=== PATIENT | female | born 1945 | race Caucasian/White ===

== ENCOUNTER → 2016-11-14 | Outpatient (CLI) | payer MEDICARE, OTHER ==
[~2016-11-14] MED LIST: ALDACTONE 25MG25 M1 PO; ALDOMET 250MG250 MG PO; AMLOPIDINE PO; ASPIR-LOW81 MG PO; ASPIRIN E.C. 8181 MG PO; B-121000 MCG PO; BUMEX 1MG TA1 MG/TA1 PO; BUMEX PO; BUMEX1 MG PO; BYDUREON PEN2 MG SQ; BYSTOLIC20 MG PO; CALCITRATE 3151 TAB PO; CALCIUM + D 5001 TAB PO; CALTRATE 600 +1 TAB PO; CATAPRES-TTS 10.1 M1 TD; CLONIDINE0.1 MG/24 TD; COZAAR100 MG PO; COZAAR50 MG PO; DOMPERIDONE10 MG/CAP PO; FORTAMET1000 MG PO; FORTAMET500 M1 PO; FOSAMAX PO; JOINT JUICE; LANTUS100 U/ML SQ; LIVALO2 MG PO; METOPROLOL PO; METOPROLOL TART50 MG PO; MICARDIS80 MG PO; NEXIUM40 MG PO; NIASPAN 500MG500 MG PO; NIASPAN500 MG PO; NORVASC 5MG5 MG/TAB PO; NOVLOG SQ; NOVOLOG; NOVOLOG 100U100 U/ML SQ; NOVOLOG FLEX100 U/ML SQ; OMEGA 31000 MG PO; PREDNISONE20 MG PO; PREMARIN V0.625 MG/G VG; REGLAN 10MG10 MG/TAB PO; SYNTHROID PO; SYNTHROID0.05 MG/TA PO; TEKTURNA PO; TIROSINT50 MC1 PO; TIROSINT50 MCG PO; TOPROL XL100 MG PO; TRICOR48 MG PO; VASCEPA1 GM PO; VITAMIN B121000 MC2 SL; VITAMIN D PO; VITAMIN D1000 IU PO; ZOCOR40 MG PO; ZOCOR80 MG PO
== END ==
LOC: MC.RAD 14:00
DX: Z12.31 Encounter for screening mammogram for malignant neoplasm of breast (principal)

== ENCOUNTER 2017-04-28 08:07 | Emergency (ER) | payer MEDICARE, OTHER ==
[~2017-04-28] VITALS: Ht 154.9 cm; Wt 70.5 kg
[2017-04-28] MEDS ORDERED: SYNTHROID0.05 MG/TA PO (08:29)
[2017-04-28] MEDS ORDERED: MACROBID 1100 MG/CAP PO (08:30)
[2017-04-28 09:11] VITALS: BP 142/65; PULSE 66
== END 2017-04-28 09:13 | disposition home or self-care (01) ==
LOC: COL.ER 08:07
DX: R04.0 Epistaxis (principal); N18.9 Chronic kidney disease, unspecified; Z79.4 Long term (current) use of insulin; Z79.82 Long term (current) use of aspirin

== ENCOUNTER 2017-05-05 16:32 | Emergency (ER) | payer MEDICARE, OTHER ==
[~2017-05-05] VITALS: Ht 154.9 cm; Wt 70.0 kg
[~2017-05-05 16:32] MED LIST changes: +MACROBID 1100 MG/CAP PO
[2017-05-05 16:36] VITALS: BP 175/85; TEMP 97.9
[2017-05-05 18:44] VITALS: PULSE 85
== END 2017-05-05 18:45 | disposition home or self-care (01) ==
LOC: COL.ER 16:32
DX: R04.0 Epistaxis (principal); I10 Essential (primary) hypertension; E11.9 Type 2 diabetes mellitus without complications; Z79.82 Long term (current) use of aspirin; Z79.4 Long term (current) use of insulin

== ENCOUNTER 2017-08-22 07:38 | Day surgery (SDC) | payer MEDICARE, OTHER ==
[~2017-08-22] VITALS: Ht 154.9 cm; Wt 70.3 kg
[~2017-08-22 07:38] MED LIST changes: +CATAPRES 0.1MG0.1 MG PO; +DEPAKOTE ER 25250 MG PO
[2017-08-22 07:58] VITALS: BP 130/73; PULSE 83; TEMP 97.7
[2017-08-22] MEDS ORDERED: ASPIRIN 81M81 MG/TA2 PO (08:12)
[2017-08-22 09:55] VITALS: BP 127/70; PULSE 78; TEMP 97.6
[2017-08-22 10:10] VITALS: BP 129/74; PULSE 77
[2017-08-22 10:25] VITALS: BP 132/60; PULSE 71
[2017-08-22 10:48] VITALS: BP 103/60; PULSE 73
== END 2017-08-22 10:40 | disposition home or self-care (01) ==
LOC: SDCO 07:38
DX: Z12.11 Encounter for screening for malignant neoplasm of colon (principal); Z86.010 Personal history of colon polyps; D12.2 Benign neoplasm of ascending colon; K64.0 First degree hemorrhoids; Z79.4 Long term (current) use of insulin; I25.10 Atherosclerotic heart disease of native coronary artery without angina pectoris; E78.5 Hyperlipidemia, unspecified; G47.33 Obstructive sleep apnea (adult) (pediatric); E11.22 Type 2 diabetes mellitus with diabetic chronic kidney disease; I12.9 Hypertensive chronic kidney disease with stage 1 through stage 4 chronic kidney disease, or unspecified chronic kidney disease; N18.9 Chronic kidney disease, unspecified; E03.9 Hypothyroidism, unspecified; E11.43 Type 2 diabetes mellitus with diabetic autonomic (poly)neuropathy; K31.84 Gastroparesis
CPT/HCPCS: OP; J2704; J7030

== ENCOUNTER → 2017-11-14 | Outpatient (CLI) | payer MEDICARE, OTHER ==
[~2017-11-14] MED LIST changes: +ASPIRIN 81M81 MG/TA2 PO
== END ==
LOC: COL.PUL 12:48
DX: R06.02 Shortness of breath (principal)
CPT/HCPCS: J7674

== ENCOUNTER → 2017-12-01 | Outpatient (CLI) | payer MEDICARE, OTHER | LOC: COL.RAD 09:35 | DX: Z12.31 Encounter for screening mammogram for malignant neoplasm of breast (principal); K76.89 Other specified diseases of liver ==

== ENCOUNTER → 2017-12-01 | Outpatient (CLI) | payer MEDICARE, OTHER | LOC: MC.RAD 13:40 | DX: Z12.31 Encounter for screening mammogram for malignant neoplasm of breast (principal) ==

== ENCOUNTER → 2018-05-31 | Outpatient (CLI) | payer MEDICARE, OTHER | LOC: COL.RAD 08:00 | DX: K76.9 Liver disease, unspecified (principal) ==

== ENCOUNTER → 2018-12-03 | Outpatient (CLI) | payer MEDICARE, OTHER | LOC: MC.RAD 08:22 | DX: Z12.31 Encounter for screening mammogram for malignant neoplasm of breast (principal) ==

== ENCOUNTER → 2019-03-13 | Outpatient (CLI) | payer MEDICARE, OTHER | LOC: COL.RAD 10:15 | DX: N95.0 Postmenopausal bleeding (principal); Z90.710 Acquired absence of both cervix and uterus ==

== ENCOUNTER → 2019-05-01 | Outpatient (CLI) | payer MEDICARE, OTHER | LOC: COL.RAD 06:55 | DX: M51.36 Other intervertebral disc degeneration, lumbar region (principal); M48.061 Spinal stenosis, lumbar region without neurogenic claudication ==

== ENCOUNTER → 2020-11-11 | Outpatient (CLI) | payer MEDICARE, OTHER | LOC: COL.VAS 12:54 | DX: I77.1 Stricture of artery (principal) ==

== ENCOUNTER → 2020-12-08 | Outpatient (CLI) | payer MEDICARE, OTHER | LOC: MC.RAD 08:50 | DX: Z12.31 Encounter for screening mammogram for malignant neoplasm of breast (principal) ==

== ENCOUNTER → 2021-11-23 | Outpatient (CLI) | payer MEDICARE, OTHER | LOC: COL.RAD 10:10 | DX: R59.1 Generalized enlarged lymph nodes (principal) ==

== ENCOUNTER → 2021-12-09 | Outpatient (CLI) | payer MEDICARE, OTHER | LOC: MC.RAD 07:51 | DX: Z12.31 Encounter for screening mammogram for malignant neoplasm of breast (principal) ==

== ENCOUNTER → 2022-03-22 | Outpatient (CLI) | payer MEDICARE | LOC: COL.LAB 13:40 | DX: J30.1 Allergic rhinitis due to pollen (principal) ==

== ENCOUNTER 2022-07-04 12:57 | Outpatient (CLI) | payer MEDICARE, OTHER ==
[~2022-07-04] VITALS: Ht 154.9 cm; Wt 75.2 kg
[2022-07-04 13:29] VITALS: BP 144/72; PULSE 72; TEMP 98
[2022-07-04] MEDS ORDERED: TRULICITY1.5 MG/0.5 SQ (13:40)
[2022-07-04] MEDS ORDERED: CALCIUM 600MG+D1 TAB PO (13:42)
[2022-07-04] MEDS ORDERED: INVIGOFLEX D1500 MG PO (13:43)
[2022-07-04] MEDS ORDERED: ZESTRIL 20MG TA20 MG PO (13:46)
[2022-07-04] MEDS ORDERED: APRESOLINE50 MG PO (13:47)
[2022-07-04] MEDS ORDERED: CATAPRES-TTS 30.3 MG TD (13:48)
[2022-07-04] MEDS ORDERED: LAMICTAL 100MG100 MG PO (13:50)
[2022-07-04] MEDS ORDERED: MYSOLINE 250MG250 MG PO (13:52)
[2022-07-04] MEDS ORDERED: REPATHA SU140 MG/1 M SQ (13:57)
[2022-07-04] MEDS ORDERED: RT ADVAIR HFA 2312 G IH (13:59)
[2022-07-04] MEDS ORDERED: LASIX 20MG TABL20 MG PO (13:59)
[2022-07-04] MEDS ORDERED: SPIRIVA RE2.5 MCG/Ac IH (14:01)
--- NOTE | 2022-07-04 15:47 | NUR ---
Pt discharged via ambulatory 2 hours post injection,denies signs or symptoms of reaction.
== END 2022-07-04 15:48 ==
LOC: EUO 12:57
DX: J45.40 Moderate persistent asthma, uncomplicated (principal); Z79.899 Other long term (current) drug therapy
CPT/HCPCS: J2357

== ENCOUNTER → 2022-07-22 | Outpatient (CLI) | payer MEDICARE, OTHER ==
[~2022-07-22] MED LIST changes: +APRESOLINE50 MG PO; +CALCIUM 600MG+D1 TAB PO; +CATAPRES-TTS 30.3 MG TD; +INVIGOFLEX D1500 MG PO; +LAMICTAL 100MG100 MG PO; +LASIX 20MG TABL20 MG PO; +MYSOLINE 250MG250 MG PO; +REPATHA SU140 MG/1 M SQ; +RT ADVAIR HFA 2312 G IH; +SPIRIVA RE2.5 MCG/Ac IH; +TRULICITY1.5 MG/0.5 SQ; +ZESTRIL 20MG TA20 MG PO
== END ==
LOC: COL.RAD 10:16
DX: I77.1 Stricture of artery (principal)

== ENCOUNTER 2022-08-01 12:58 | Outpatient (CLI) | payer MEDICARE, OTHER ==
[~2022-08-01] VITALS: Ht 154.9 cm; Wt 76.5 kg
[2022-08-01 13:21] VITALS: BP 134/67; PULSE 74; TEMP 98.2
--- NOTE | 2022-08-01 14:18 | NUR ---
pt discharged at 1420. she tolerated her two xolair injxns well and was observed for 30 minutes following. her vital signs remained within normal limits and she was ambulate upon discharge. she left with a friend. both injections were given in the back of her arms with no complications.
== END 2022-08-01 14:20 | disposition home or self-care (01) ==
LOC: EUO 12:58
DX: J45.40 Moderate persistent asthma, uncomplicated (principal); Z79.899 Other long term (current) drug therapy
CPT/HCPCS: J2357

== ENCOUNTER 2022-09-13 07:02 | Day surgery (SDC) | payer MEDICARE, OTHER ==
[~2022-09-13] VITALS: Ht 154.9 cm; Wt 74.8 kg
[2022-09-13] MEDS ORDERED: LANTUS100 U/ML ×2 (08:23)
[2022-09-13] MEDS ORDERED: SYNTHROID0.075 MG/T PO (08:24)
[2022-09-13] MEDS ORDERED: MASON NATURAL2000 IU PO (08:30)
[2022-09-13] MEDS ORDERED: XOLAIR150 MG SQ (08:33)
[2022-09-13] MEDS ORDERED: PROAIR HFA0.09 MG/AC (08:34)
[2022-09-13] MEDS ORDERED: REFRESH OPTIVE0.4 M1 OP (08:35)
[2022-09-13 11:06] VITALS: BP 143/61; PULSE 84; TEMP 97.5
== END 2022-09-13 09:38 | disposition home or self-care (01) ==
LOC: SDCO 07:02
DX: Z12.11 Encounter for screening for malignant neoplasm of colon (principal); D12.2 Benign neoplasm of ascending colon; D12.3 Benign neoplasm of transverse colon; D12.4 Benign neoplasm of descending colon; K64.0 First degree hemorrhoids; G47.33 Obstructive sleep apnea (adult) (pediatric); Z99.81 Dependence on supplemental oxygen
CPT/HCPCS: J2704; J3010; J7030

== ENCOUNTER → 2022-09-29 | Outpatient (CLI) | payer MEDICARE, OTHER ==
[~2022-09-29] MED LIST changes: +LANTUS100 U/ML; +MASON NATURAL2000 IU PO; +PROAIR HFA0.09 MG/AC; +REFRESH OPTIVE0.4 M1 OP; +SYNTHROID0.075 MG/T PO; +XOLAIR150 MG SQ
== END ==
LOC: COL.RAD 12:45
DX: N18.32 Chronic kidney disease, stage 3b (principal)

== ENCOUNTER 2023-06-05 12:54 | Outpatient (CLI) | payer MEDICARE, OTHER ==
[~2023-06-05] VITALS: Ht 154.9 cm; Wt 74.4 kg
[~2023-06-05 12:54] MED LIST changes: -APRESOLINE50 MG PO; +HYDRALAZINE HC100 MG PO
[2023-06-05 13:05] VITALS: BP 143/66; PULSE 78; TEMP 98.2
[2023-06-05] MEDS ORDERED: Omalizumab 150 MG/1 ML SYRINGE SQ SCH (13:15)
[2023-06-05] MEDS ORDERED: OSCAL 500 TAB500 MG PO (13:18)
[2023-06-05] MEDS ORDERED: MYSOLINE 5050 MG/TAB PO (13:23)
--- NOTE | 2023-06-05 13:42 | NUR ---
Pt tolerated xolair without issue. She exits dept with steady gait, free of complaints at time of discharge.
== END 2023-06-05 13:42 | disposition home or self-care (01) ==
LOC: EUO 12:54
DX: J45.40 Moderate persistent asthma, uncomplicated (principal)
CPT/HCPCS: J2357

== ENCOUNTER 2023-07-03 12:55 | Outpatient (CLI) | payer MEDICARE, OTHER ==
[~2023-07-03] VITALS: Ht 154.9 cm; Wt 73.8 kg
[~2023-07-03 12:55] MED LIST changes: +MYSOLINE 5050 MG/TAB PO; +OSCAL 500 TAB500 MG PO
[2023-07-03] MEDS ORDERED: Omalizumab 150 MG/1 ML SYRINGE SQ SCH (13:15)
[2023-07-03 13:24] VITALS: BP 129/68; PULSE 79; TEMP 97.8
[2023-07-03] MEDS ORDERED: LANTUS100 U/ML SQ (13:36)
--- NOTE | 2023-07-03 13:44 | NUR ---
Pt tolerated xolair without issue. She exits dept with steady gait.
== END 2023-07-03 13:45 | disposition home or self-care (01) ==
LOC: EUO 12:55
DX: J45.40 Moderate persistent asthma, uncomplicated (principal)
CPT/HCPCS: J2357

== ENCOUNTER → 2023-12-12 | Outpatient (CLI) | payer MEDICARE, OTHER ==
[~2023-12-12] MED LIST changes: +REGLAN 5MG T5 MG/TAB PO
== END ==
LOC: MC.RAD 08:15
DX: Z12.31 Encounter for screening mammogram for malignant neoplasm of breast (principal)

== ENCOUNTER 2024-03-11 12:48 | Outpatient (CLI) | payer MEDICARE, OTHER ==
[~2024-03-11] VITALS: Ht 154.9 cm; Wt 73.1 kg
[~2024-03-11 12:48] MED LIST changes: +CALCIUM 600600 MG PO; +NOVOLOG 100U100 U/M1 SQ
[2024-03-11] MEDS ORDERED: Omalizumab 150 MG/1 ML SYRINGE SQ SCH (13:00)
[2024-03-11 13:02] VITALS: BP 111/62; PULSE 66; TEMP 97.9
[2024-03-11] MEDS ORDERED: WIXELA 500-501 EACH IH (13:05)
== END 2024-03-11 13:28 | disposition home or self-care (01) ==
LOC: EUO 12:48
DX: J45.40 Moderate persistent asthma, uncomplicated (principal)
CPT/HCPCS: J2357